=== PATIENT | female | born 1980 | race Caucasian/White ===

== ENCOUNTER 2019-05-19 00:22 | Emergency (ER) | payer OTHER ==
[~2019-05-19] VITALS: Ht 177.8 cm; Wt 95.5 kg
[~2019-05-19 00:22] MED LIST: NAPR-243 PO; PAXIL; PIRO-9 PO; TRM50T PO
[2019-05-19] MEDS ORDERED: KETOROLAC 30 MG/ML VIAL IVP STA (00:30)
[2019-05-19] MEDS ORDERED: PANTOPRAZOLE 40 MG (PROTONIX) VIAL IV ONE (00:30)
[2019-05-19] MEDS ORDERED: HYOSCYAMINE 0.125 MG (LEVSIN) TAB SL ONE (00:30)
[2019-05-19] MEDS ORDERED: ONDANSETRON 4 MG/2 ML (SDV) Z0FRAN IVP ONE (00:30)
[2019-05-19] MEDS ORDERED: ASPIRIN 81 MG CHEW (CHILDREN'S ASA) PO STA (00:30)
[2019-05-19 00:45] LABS: BASOPHILS # (AUTO) 0.1 10^3/uL (0.0-0.1); BASOPHILS % (AUTO) 0 % (0-10); EOSINOPHILS # (AUTO) 0.6 10^3/uL (0.0-0.3); EOSINOPHILS % (AUTO) 4 % (0-10); HEMATOCRIT 32 % (35-52); HEMOGLOBIN 9.6 G/DL (11.5-16.0); LYMPHOCYTES # (AUTO) 5.4 X 10^3 (1.0-4.0); LYMPHOCYTES % (AUTO) 38 % (12-44); MEAN CORPUSCULAR HEMOGLOBIN 22 PG (25-34); MEAN CORPUSCULAR HGB CONC 30 G/DL (32-36); MEAN CORPUSCULAR VOLUME 74 FL (80-99); MEAN PLATELET VOLUME 8.6 FL (7.4-10.4); MONOCYTES # (AUTO) 1.1 X 10^3 (0.0-1.0); MONOCYTES % (AUTO) 8 % (0-12); NEUTROPHILS # (AUTO) 7.2 X 10^3 (1.8-7.8); NEUTROPHILS % (AUTO) 50 % (42-75); PLATELET COUNT 555 10^3/uL (130-400); WHITE BLOOD COUNT 14.3 10^3/uL (4.3-11.0)
[2019-05-19 01:01] LABS: BILIRUBIN,URINE NEGATIVE (NEGATIVE); CLARITY,URINE CLEAR; COLOR,URINE YELLOW; GLUCOSE, URINE (UA) NEGATIVE (NEGATIVE); KETONES,URINE NEGATIVE (NEGATIVE); LEUKOCYTE ESTERASE ,URINE NEGATIVE (NEGATIVE); NITRITE,URINE NEGATIVE (NEGATIVE); PH,URINE 6 (5-9); PROTEIN,URINE NEGATIVE (NEGATIVE); UROBILINOGEN,URINE NORMAL (NORMAL)
[2019-05-19 01:05] LABS: ACETAMINOPHEN < 10 UG/ML (10-30); ALANINE AMINOTRANSFERASE 30 U/L (0-55); ALBUMIN 4.5 GM/DL (3.2-4.5); ALKALINE PHOSPHATASE 44 U/L (40-136); AMYLASE 79 U/L (25-125); BILIRUBIN,TOTAL 0.2 MG/DL (0.1-1.0); BUN/CREATININE RATIO 13; CALCIUM 9.4 MG/DL (8.5-10.1); CARBON DIOXIDE 20 MMOL/L (21-32); CHLORIDE 106 MMOL/L (98-107); CREATINE KINASE 169 U/L (29-168); CREATININE SERUM 0.88 MG/DL (0.60-1.30); GFR ESTIMATED > 60; GLUCOSE 98 MG/DL (70-105); LIPASE 55 U/L (8-78); POTASSIUM 3.2 MMOL/L (3.6-5.0); SODIUM 139 MMOL/L (135-145); TOTAL PROTEIN 7.6 GM/DL (6.4-8.2)
[2019-05-19 01:12] LABS: CREATINE KINASE MB 1.2 NG/ML (<6.6)
[2019-05-19 01:14] LABS: BACTERIA,URINE NEGATIVE /HPF
[2019-05-19 01:16] LABS: AMPHETAMINE SCREEN, URINE NEGATIVE (NEGATIVE); BARBITURATE SCREEN URINE NEGATIVE (NEGATIVE); BENZODIAZEPINES SCREEN URINE NEGATIVE (NEGATIVE); CANNABINOID SCREEN, URINE NEGATIVE (NEGATIVE); COCAINE SCREEN URINE NEGATIVE (NEGATIVE); METHADONE STAT NEGATIVE (NEGATIVE); METHAMPHETAMINE SCREEN URINE S NEGATIVE (NEGATIVE); OPIATE SCREEN URINE NEGATIVE (NEGATIVE); OXYCODONE STAT NEGATIVE (NEGATIVE); PROPOXYPHENE STAT NEGATIVE (NEGATIVE); TRICYCLIC ANTIDEPRESSANTS SCRE NEGATIVE (NEGATIVE)
[2019-05-19 01:23] LABS: INR 0.9 (0.8-1.4); PROTHROMBIN TIME PATIENT 12.2 SEC (12.2-14.7)
[2019-05-19] MEDS ORDERED: NS 100 ML (IVPB) BAG IV ONE (01:30)
[2019-05-19] MEDS ORDERED: IOHEXOL 350 MG/ML 100 ML (OMNIPAQUE 350) VIAL IV ONE (01:30)
--- NOTE | 2019-05-19 01:59 | ED Chest Pain ---
General Chief Complaint: Chest Pain Stated Complaint: CHEST PAIN Nursing Triage Note: Pt amb to room #7 with c/o medial chest discomfort and SOA. Pt reports @ approx 0000 on this day, medial chest discomfort and SOA began. Pt reports throughout evening she drank between 7-12 alcohol drinks (beer & rum). Pt reports increase pain upon movement. Reports chest discomfort to be accompanied by nausea. S/o @ side. Pt restless and tearful. Pt reports throughout evening of 05/18/19 she experienced diarrhea. Nursing Sepsis Screen: No Definite Risk Source: patient, other (MALE S.O.) History of Present Illness Date Seen by Provider: May 19, 2019 Time Seen by Provider: 00:23 Initial Comments PT ARRIVES VIA POV C/O SUDDEN ONSET OF SEVERE PAIN OF ENTIRE CHEST RATES PAIN 10/10 PAIN BEGAN LESS THAN 15 MINUTES AGO, WHILE SITTING IN A CAR. STATES SHE "CAN'T BREATHE" BECAUSE HER PAIN IS SO SEVERE PAIN IS WORSE WITH BREATHING AND MOVING, CAN'T LAY DOWN DUE TO PAIN C/O MILD NAUSEA, NO VOMITING PT HAS BEEN DRINKING ALCOHOL TONIGHT--"7-12 DRINKS" OF BOTH ALCOHOL AND RUM TONIGHT HAS BEEN TO A BIRTHDAY RE[employer] AT "[employer]" AND THEN TO "[employer]" "TO WATCH THE GAME" PT DRINKS ON A REGULAR BASIS NO HISTORY OF SIMILAR PT HAS SELF DX OF GERD, AND TAKES OTC OMEPRAZOLE AND TUMS STATES SHE "EATS THEM LIKE CANDY, ESPECIALLY LATELY" PT HAS HAD PRIOR GASTRIC SLEEVE SURGERY, CHOLECYSTECTOMY AND APPY. PT STATES SHE HAS NEVER HAD AN EGD. SHORTLY AFTER ARRIVAL, PT NOW STATES "I DON'T KNOW IF IT'S MY CHEST OR MY ABDOMEN--NOW I THINK IT'S MY ABDOMEN" DURING ER STAY PAIN MOVES AROUND--AT TIMES IS IN LUQ/LEFT FLANK/LEFT LOWER RIBS AND CHEST, THEN A SHORT TIME LATER IS ALL ACROSS HER ABDOMEN AND CHEST PT IS CONSTANTLY HOLDING AND PUSHING ON HER CHEST AND UPPER ABDOMEN. LNP 1 WEEK AGO. S/P BTL PCP: FT. YANCI SPARKS Allergies and Home Medications Allergies Coded Allergies: sulfamethoxazole (Unverified Allergy, Severe, ANAPHYLAXSIS, 03/05/11) trimethoprim (Unverified Allergy, Severe, ANAPHYLAXSIS, 03/05/11) Uncoded Allergies: SOLU MEDROL (Allergy, Severe, ANAPHYLAXSIS, 03/05/11) Home Medications Hyoscyamine Sulfate 0.125 Mg Tab.subl, 1-2 TAB SL Q4H Prescribed by: LINDSEY CURRIE on 05/19/19258 Naproxen 500 Mg Tablet, 1 EACH PO TID PRN FOR PAIN Prescribed by: LINDSEY CURRIE on 03/05/11 0536 Ondansetron 4 Mg Tab.rapdis, 4 MG PO Q4H Prescribed by: LINDSEY CURRIE on 05/19/19258 Pantoprazole Sodium 40 Mg Tablet.dr, 40 MG PO BID Prescribed by: LINDSEY CURRIE on 05/19/19258 Piroxicam 20 Mg Capsule, 20 MG PO BID, (Reported) Sucralfate 1 Gm/10 Ml Oral.susp, 1 GM PO QID AC AND HS Prescribed by: LINDSEY CURRIE on 05/19/19258 Tramadol Hcl 50 Mg Tab, 50 MG PO Q4-6HOURS PRN FOR PAIN Prescribed by: LINDSEY CURRIE on 03/05/11 05 [Paxil] , DAILY, (Reported) Patient Home Medication List Home Medication List Reviewed: Yes Review of Systems Review of Systems Constitutional: no symptoms reported Respiratory: See HPI, Shortness of Air Cardiovascular: See HPI, Chest Pain Gastrointestinal: See HPI, Abdominal Pain, Nausea; Denies Vomiting; Other (WAS CONSTIPATED, THEN TOOK MEDICATION THAT CAUSED DIARRHEA, THEN TOOK IMMODIUM TO STOP THE DIARRHEA. ) Genitourinary: No Symptoms Reported Musculoskeletal: see HPI Skin: no symptoms reported Psychiatric/Neurological: See HPI, Anxiety Endocrine: No Symptoms Reported Hematologic/Lymphatic: No Symptoms Reported Past Sdxrbkb-Wmxptg-Lawaeq Hx Patient Social History Alcohol Use: Regular Use (HEAVY AT TIMES) Number of Drinks Today: 12 Alcohol Beverage of Choice: Beer, Rum Recreational Drug Use: No Smoking Status: Current Someday Smoker Type Used: Cigarettes 2nd Hand Smoke Exposure: No Recent Foreign Travel: No Contact w/Someone Who Travel: No Recent Infectious Disease Expo: No Recent Hopitalizations: No Seasonal Allergies Seasonal Allergies: No Past Medical History Surgeries: Yes (GASTRIC SLEEVE) Abdominal, Appendectomy, Gallbladder, Tubal Ligation Respiratory: No Cardiac: No Neurological: No : No DEBURRER History: Tubal Ligation Genitourinary: No Gastrointestinal: Yes (GERD--SELF DX; S/P GASTRIC SLEEVE) Gastroesophageal Reflux Musculoskeletal: No Endocrine: No HEENT: No Cancer: No Psychosocial: No Integumentary: No Blood Disorders: No Physical Exam Vital Signs Vital Signs - First Documented Capillary Refill : Less Than 3 Seconds Height, Weight, BMI Height: '" Weight: lbs. oz. kg; 30.00 BMI Method: General Appearance: Other (EXTREMELY ANXIOUS, NEARLY HYSTERICAL. WALKING AND MOVING VERY STIFFLY AND KEEPS ENTIRE BODY VERY RIGID. PT MOANING AND WAILING AND HYPERVENTILATING ON ARRIVAL. VERY DRAMATIC. STRONG ODOR OF ETOH. 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 Norm as Tested Skin: Normal Color, Warm/Dry, Tattoos/Piercings Progress/Results/Core Measures Results/Orders Lab Results Laboratory Tests Test 05/19/19 00:32 05/19/19 00:53 Range/Units White Blood Count 14.3 H 4.3-11.0 10^3/uL Red Blood Count 4.40 4.35-5.85 10^6/uL Hemoglobin 9.6 L 11.5-16.0 G/DL Hematocrit 32 L 35-52 % Mean Corpuscular Volume 74 L 80-99 FL Mean Corpuscular Hemoglobin 22 L 25-34 PG Mean Corpuscular Hemoglobin Concent 30 L 32-36 G/DL Red Cell Distribution Width 17.0 H 10.0-14.5 % Platelet Count 555 H 130-400 10^3/uL Mean Platelet Volume 8.6 7.4-10.4 FL Neutrophils (%) (Auto) 50 42-75 % Lymphocytes (%) (Auto) 38 12-44 % Monocytes (%) (Auto) 8 0-12 % Eosinophils (%) (Auto) 4 0-10 % Basophils (%) (Auto) 0 0-10 % Neutrophils # (Auto) 7.2 1.8-7.8 X 10^3 Lymphocytes # (Auto) 5.4 H 1.0-4.0 X 10^3 Monocytes # (Auto) 1.1 H 0.0-1.0 X 10^3 Eosinophils # (Auto) 0.6 H 0.0-0.3 10^3/uL Basophils # (Auto) 0.1 0.0-0.1 10^3/uL Prothrombin Time 12.2 12.2-14.7 SEC INR Comment 0.9 0.8-1.4 Activated Partial Thromboplast Time 30 24-35 SEC Sodium Level 139 135-145 MMOL/L Potassium Level 3.2 L 3.6-5.0 MMOL/L Chloride Level 106 98-107 MMOL/L Carbon Dioxide Level 20 L 21-32 MMOL/L Anion Gap 13 5-14 MMOL/L Blood Urea Nitrogen 11 7-18 MG/DL Creatinine 0.88 0.60-1.30 MG/DL Estimat Glomerular Filtration Rate > 60 BUN/Creatinine Ratio 13 Glucose Level 98 70-105 MG/DL Calcium Level 9.4 8.5-10.1 MG/DL Corrected Calcium 9.0 8.5-10.1 MG/DL Magnesium Level 2.0 1.6-2.4 MG/DL Total Bilirubin 0.2 0.1-1.0 MG/DL Aspartate Amino Transf (AST/SGOT) 43 H 5-34 U/L Alanine Aminotransferase (ALT/SGPT) 30 0-55 U/L Alkaline Phosphatase 44 40-136 U/L Total Creatine Kinase 169 H 29-168 U/L Creatine Kinase MB 1.2 <6.6 NG/ML Myoglobin 28.7 10.0-92.0 NG/ML Troponin I < 0.028 <0.028 NG/ML B-Type Natriuretic Peptide < 10.0 <100.0 PG/ML Total Protein 7.6 6.4-8.2 GM/DL Albumin 4.5 3.2-4.5 GM/DL Amylase Level 79 25-125 U/L Lipase 55 8-78 U/L Serum Test, Qualitative NEGATIVE NEGATIVE Acetaminophen Level < 10 L 10-30 UG/ML Serum Alcohol 214 H <10 MG/DL Urine Color YELLOW Urine Clarity CLEAR Urine pH 6 5-9 Urine Specific [place] 1.005 L 1.016-1.022 Urine Protein NEGATIVE NEGATIVE Urine Glucose (UA) NEGATIVE NEGATIVE Urine Ketones NEGATIVE NEGATIVE Urine Nitrite NEGATIVE NEGATIVE Urine Bilirubin NEGATIVE NEGATIVE Urine Urobilinogen NORMAL NORMAL MG/DL Urine Leukocyte Esterase NEGATIVE NEGATIVE Urine RBC (Auto) NEGATIVE NEGATIVE Urine RBC NONE /HPF Urine WBC NONE /HPF Urine Squamous Epithelial Cells 2-5 /HPF Urine Crystals NONE /LPF Urine Bacteria NEGATIVE /HPF Urine Casts NONE /LPF Urine Mucus NEGATIVE /LPF Urine Culture Indicated NO Urine Opiates Screen NEGATIVE NEGATIVE Urine Oxycodone Screen NEGATIVE NEGATIVE Urine Methadone Screen NEGATIVE NEGATIVE Urine Propoxyphene Screen NEGATIVE NEGATIVE Urine Barbiturates Screen NEGATIVE NEGATIVE Ur Tricyclic Antidepressants Screen NEGATIVE NEGATIVE Urine Phencyclidine Screen NEGATIVE NEGATIVE Urine Amphetamines Screen NEGATIVE NEGATIVE Urine Methamphetamines Screen NEGATIVE NEGATIVE Urine Benzodiazepines Screen NEGATIVE NEGATIVE Urine Cocaine Screen NEGATIVE NEGATIVE Urine Cannabinoids Screen NEGATIVE NEGATIVE My Orders Orders - KUSHKVNGA Jac DO Cbc With Automated Diff (05/19/19) Magnesium (05/19/19) Chest 1 View, Ap/Pa Only (05/19/19) Ekg Tracing (05/19/19) Cardiac Profile 1 (05/19/19) Comprehensive Metabolic Panel (05/19/19) Myoglobin Serum (05/19/19) Protime With Inr (05/19/19) Partial Thromboplastin Time (05/19/19) O2 (05/19/19) Monitor-Rhythm Ecg Trace Only (05/19/19) Ed Iv/Invasive Line Start (05/19/19) Creatine Kinase (05/19/19) Creatine Kinase Mb (05/19/19) Lipase (05/19/19) Amylase (05/19/19) BNP (05/19/19) Drug Screen Stat (Urine) (05/19/19:30) Hcg,Qualitative Serum (05/19/19:30) Ua Culture If Indicated (05/19/1930) Ondansetron Injection (Zofran Injectio (05/19/19:30) Hyoscyamine Sl Tablet (Levsin Sl Tablet) (05/19/19:30) Aspirin Chewable Tablet (Baby Aspirin Ch (05/19/19:30) Ketorolac Injection (Toradol Injection) (05/19/19:30) Pantoprazole Injection (Protonix Injecti (05/19/19 00:30) Acetaminophen (05/19/19 00:32) Alcohol (05/19/19 00:32) Ct Alanna Chest/Noang Abd-Pelv W (05/19/19 01:17) Ekg Tracing (05/19/19 01:19) Iohexol Injection (Omnipaque 350 Mg/Ml 1 (05/19/19 01:30) Ns (Ivpb) (Sodium Chloride 0.9% Ivpb Bag (05/19/19 01:30) Rx-Hyoscyamine Tab (Rx-Levsin Sl) (05/19/19 02:48) Rx-Ondansetron Po (Rx-Zofran Po) (05/19/19 02:48) Medications Given in ED Current Medications Medications Dose Ordered Sig/Lisbet Route Start Time Stop Time Status Last Admin Dose Admin Hyoscyamine Sulfate 0.25 mg ONCE ONCE SL 05/19/19 00:30 05/19/19 00:33 DC 05/19/19 01:10 0.25 MG Iohexol 79 ml ONCE ONCE IV 05/19/19 01:30 05/19/19 01:36 DC 05/19/19 01:47 79 ML Ondansetron HCl 4 mg ONCE ONCE IVP 05/19/19 00:30 05/19/19 00:33 DC 05/19/19 00:38 4 MG Pantoprazole 40 mg ONCE ONCE IV 05/19/19 00:30 05/19/19 00:33 DC 05/19/19 00:38 40 MG Sodium Chloride 70 ml ONCE ONCE IV 05/19/19 01:30 05/19/19 01:36 DC 05/19/19 01:47 70 ML Vital Signs/I&O 05/19/19 05/19/19 05/19/19 00:23 00:23 03:05 Temp 36.2 36.6 Pulse 134 90 Resp 24 17 B/P (MAP) 127/111 (116) 106/69 (116) Pulse Ox 100 100 O2 Delivery Room Air Room Air Room Air Blood Pressure Mean: 116 Progress Progress Note : Progress Note GIVEN ZOFRAN, LEVSIN, ASPIRIN, PROTONIX, TORADOL ON ARRIVAL WITH COMPLETE RESOLUTION OF SYMPTOMS. PT IS MUCH CALMER. HEART RATE AND BP ARE DOWN IN NORMAL RANGE. Initial ECG Impression Date: May 19, 2019 Initial ECG Impression Time: 00:26 Initial ECG Rate: 142 Initial ECG Rhythm: S.Tach Initial ECG Impression: Nonspecific Changes EKG : EKG Time: 01:20 Rate: 75 Rhythm: Normal Sinus ECG Impression: Nonspecific Changes, 1st Degree AV Block Diagnostic Imaging Comments CXR--NO ACUTE PROCESS, PENDING RADIOLOGIST REVIEW CT CHEST ANGIOGRAM/ ABDOMEN-PELVIS---NO ACUTE PROCESS, PER [facility] VIA FAX AT 0243 Reviewed: Reviewed by Me Departure Impression Primary Impression: Chest pain Additional Impressions: Epigastric abdominal pain POSSIBLE GASTRITIS/GERD/ESOPHAGEAL SPASM Disposition: HOME, SELF-CARE Condition: Improved Departure-Patient Inst. Referrals: [facility] (PCP/Family) Primary Care Physician TIM YEPEZ DO Patient Instructions: Gastritis (DC), Acid Reflux (Gastroesophageal Reflux Disease) in Adults, Chest Pain (DC), Acute Abdomen (Belly Pain), Adult (DC) Add. Discharge Instructions: NO ALCOHOL CLEAR LIQUIDS--WATER, BROTH, JELLO, GATORADE TOMORROW IF YOU ARE BETTER, ADD BRATS DIET TO CLEAR LIQUIDS--BANANAS, RICE, APPLESAUCE, TOAST, SALTINES FOLLOW UP WITH DR. YEPEZ NEXT WEEK FOR FURTHER CARE--CALL ON MONDAY FOR APPOINTMENT RETURN TO ER IF SYMPTOMS RETURN All discharge instructions reviewed with patient and/or family. Voiced understanding. Scripts Ondansetron (Ondansetron Odt) 4 Mg Tab.rapdis 4 MG PO Q4H for Nausea/Vomiting, #10 TAB Prov: LINDSEY CURRIE DO 05/19/19 Hyoscyamine Sulfate (Levsin-Sl) 0.125 Mg Tab.subl 1-2 TAB SL Q4H for Abdominal Pain, #30 TAB Prov: LINDSEY CURRIE DO 05/19/19 Sucralfate (Carafate) 1 Gm/10 Ml Oral.susp 1 GM PO QID AC AND HS, #400 ML Prov: LINDSEY CURRIE K DO 05/19/19 Pantoprazole Sodium (Protonix) 40 Mg Tablet.dr 40 MG PO BID, #60 TAB Prov: KVNG CURRIEA K DO 05/19/19 KVNG CURRIEA K May 19, 2019 01:59
[2019-05-19] MEDS ORDERED: RX-HYOSCYAMINE 0.125 MG SL (LEVSIN) PPK#6 SL STA (02:48)
[2019-05-19] MEDS ORDERED: RX-ONDANSETRON 4 MG ODT (ZOFRAN) PPK #4 PO STA (02:48)
[2019-05-19] MEDS ORDERED: ONDA4TAB11 PO (02:59)
[2019-05-19] MEDS ORDERED: SUCR1ORA5 PO (02:59)
[2019-05-19] MEDS ORDERED: HYOS0.1283 SL (02:59)
[2019-05-19] MEDS ORDERED: PANT40TA2 PO (02:59)
[2019-05-19 03:05] VITALS: BP 106/69
--- NOTE | 2019-05-19 06:01 | Diagnostic Imaging Report ---
EXAMINATION: Portable erect AP chest at 1:11 AM INDICATION: Chest pain There are no prior studies available for comparison. The heart size is within normal limits. The lungs are clear. There is no evidence for failure, pneumonia or for a pleural effusion. The mediastinum is not widened. The osseous structures are intact. IMPRESSION: 1. There is no evidence for an acute cardiopulmonary abnormality. 2. Reportedly, CTA of the chest, abdomen, and pelvis is pending for further study. Dictated by: Dictated on workstation # [id number]
--- NOTE | 2019-05-19 07:38 | Diagnostic Imaging Report ---
CTA of the chest, abdomen, and pelvis. INDICATION: Chest pain Contiguous axial sections were taken through the chest, abdomen, and pelvis following the administration of intravenous contrast. Sagittal and coronal reconstructed images and MIP images of the aorta were also performed. A delayed axial series through the abdomen and pelvis was obtained as well. There are no prior studies available for comparison. The images through the thorax show that the heart size is within normal limits. There are no coronary artery calcifications evident. The aorta is not abnormally dilated and there is no sign of dissection. There is no defect within the pulmonary arteries to indicate a pulmonary embolus. The lungs are generally clear. There is no evidence for failure, pneumonia or pleural effusion. There is no parenchymal lung mass noted. There is no mediastinal or hilar adenopathy. The thyroid gland is generally unremarkable. There is no obvious breast mass. The sections through the abdomen and pelvis showed that the aorta is not abnormally dilated. The abdominal aorta itself was not evaluated during the arterial phase. By history, the patient is status post cholecystectomy, gastric sleeve and appendectomy. Surgical sutures are seen about the stomach and in the region of the appendix and in the gallbladder fossa. The surgical clips in the region of the appendix are more numerous and larger than usually seen. The reason for this is not certain. Correlation with the patient's surgical history would be recommended. The liver, spleen, pancreas, adrenals, kidneys and inferior vena cava are unremarkable. There is no pelvic mass or free fluid collection evident. There does appear to be a 2.0 cm cyst associated with the right ovary. If further evaluation is desired, then ultrasound would be recommended. The urinary bladder is grossly unremarkable. The bone windows show no evidence for a fracture or for a foreign destructive lesion. The sagittal images do show that there is fairly severe degenerative disc and bone disease at L4-L5. These degenerative changes have developed in the interval since the prior CT lumbar spine exam of 10/22/2007. There does appear to be mild spinal stenosis and neural foraminal narrowing on the right at L4-L5. If further study is desired, then MRI would be recommended. IMPRESSION: 1. There is no evidence for an acute abnormality of the chest, abdomen or pelvis. It should be noted that the abdominal aorta was not evaluated in the arterial phase, however. 2. There are postsurgical changes consistent with a prior cholecystectomy, previous gastric sleeve procedure and appendectomy. The surgical clips in the region of the appendix are larger and more numerous than usually seen. Correlation with the patient's surgical history would be recommended. 3. There appears to be a 2 cm cyst associated with the right ovary. If further study is desired, then ultrasound would be recommended. 4. There is degenerative disc and bony disease at L4-L5 and there does appear to be spinal stenosis and neuroforaminal narrowing on the right at this level. If further imaging is desired, then MRI would be recommended. Dictated by: Dictated on workstation # [id number]
== END 2019-05-19 03:05 | disposition home or self-care (01) ==
LOC: EDUNIT# 00:22 → ER 00:24
DX: R07.9 Chest pain, unspecified (principal); R10.13 Epigastric pain; K21.9 Gastro-esophageal reflux disease without esophagitis; F17.210 Nicotine dependence, cigarettes, uncomplicated; Z90.49 Acquired absence of other specified parts of digestive tract; Z98.51 Tubal ligation status; Z88.2 Allergy status to sulfonamides; Z88.1 Allergy status to other antibiotic agents
CPT/HCPCS: 36415; 71045; 71275; 74177; 80053; 80306; 80320; 80329; 81000; 82150; 82550; 82553; 83690; 83735; 83874; 83880; 84484; 84703; 85025; 85610; 85730; 93041

== ENCOUNTER → 2021-05-05 | Outpatient (CLI) | payer OTHER ==
[~2021-05-05] VITALS: Ht 175 cm; Wt 92.0 kg
[~2021-05-05] MED LIST changes: +CATHETER FLUSH 10 ML SYR IV PRN; +FERR325T24 PO; +HYOS0.1283 SL; +METH27TA4 PO; +MV-M1TAB20 PO; +NS IV 500 ML 500 ML IV SCH; +OMEP-401 PO; +ONDA4TAB11 PO; +PANT40TA2 PO; +SERT100T PO; +SUCR1ORA5 PO
[2021-05-05 09:05] VITALS: BP 117/71
[2021-05-05 09:09] LABS: HEMOGLOBIN 6.9 g/dL (11.5-16.0)
[2021-05-05 09:53] VITALS: BP 107/64
[2021-05-05 10:08] VITALS: BP 111/82
[2021-05-05 11:23] LABS: HEMOGLOBIN 7.2 g/dL (11.5-16.0)
[2021-05-05 11:37] VITALS: BP 101/61
[2021-05-05 11:52] VITALS: BP 105/47
== END ==
LOC: SDC 08:30
PROVIDERS: ATTEND Physician Assistant
DX: D50.9 Iron deficiency anemia, unspecified (principal)
CPT/HCPCS: 36430; 85014; 85018; 86850; 86900; 86901; 86920; P9016; 36415

== ENCOUNTER 2022-01-20 01:33 | Emergency (ER) | payer OTHER ==
[~2022-01-20 01:33] MED LIST changes: -CATHETER FLUSH 10 ML SYR IV PRN; -NS IV 500 ML 500 ML IV SCH
--- NOTE | 2022-01-20 01:53 | ED EENT ---
History of Present Illness General Stated Complaint: SORE THROAT Source: patient History of Present Illness Date Seen by Provider: Jan 20, 2022 Time Seen by Provider: 01:50 Initial Comments PT ARRIVES VIA POV FROM HOME WITH SON C/O SORE THROAT x 2-3 DAYS PAIN GOT BETTER, AND THEN CAME BACK HAS HAD SOME NASAL DRAINAGE NO COUGH NO DIFFICULTY BREATHING OR SWALLOWING SALIVA NO NAUSEA/VOMITING NO FEVER/SWEATS/CHILLS HAS NOT TAKEN ANYTHING FOR PAIN PCP; [facility] Allergies and Home Medications Allergies Coded Allergies: sulfamethoxazole (Unverified Allergy, Severe, ANAPHYLAXSIS, 03/05/11) trimethoprim (Unverified Allergy, Severe, ANAPHYLAXSIS, 03/05/11) Uncoded Allergies: SOLU MEDROL (Allergy, Severe, ANAPHYLAXSIS, 03/05/11) Patient Home Medication List Home Medication List Reviewed: Yes Amoxicillin (Amoxicillin) 875 Mg Tablet, 875 MG PO BID Prescribed by: LINDSEY CURRIE on 01/20/22242 Ferrous Sulfate (Ferosul) 325 Mg Tablet, 325 MG PO DAILY, (Reported) Entered as Reported by: ELVIN JACKSON on 05/05/21958 Loratadine/Pseudoephedrine (Claritin-D 12 Hour Tablet) 5 Mg-120 Mg Tab.er.12h, 1 EACH PO BID Prescribed by: LINDSEY CURRIE on 01/20/22 024 Methylphenidate HCl (Concerta) 27 Mg Tab.er.24, 27 MG PO DAILY, (Reported) Entered as Reported by: ELVIN JACKSON on 05/05/21958 Mv-Mn/Iron/FA/Herbal Cmplx#190 (Vitamin D3 Complete Caplet) 1 Each Tablet, 1 EACH PO DAILY, (Reported) Entered as Reported by: ELVIN JACKSON on 05/05/21958 Omeprazole (Omeprazole) 20 Mg Tab.rap.dr, 20 MG PO DAILY, (Reported) Entered as Reported by: ELVIN JACKSON on 05/05/21958 Prednisone (Prednisone) 20 Mg Tab, 40 MG PO DAILY Prescribed by: LINDSEY CURRIE on 01/20/22 024 Sertraline HCl (Zoloft) 100 Mg Tablet, 100 MG PO DAILY, (Reported) Entered as Reported by: ELVIN JACKSON on 05/05/21 0959 Triamcinolone Acetonide (Nasacort) 55 [address] [place], 2 SPRAYS NS BID Prescribed by: LINDSEY CURRIE on 01/20/22 0243 Review of Systems Review of Systems Constitutional: no symptoms reported Eyes: No Symptoms Reported Ears: No Symptoms Reported Nose: see HPI, congestion, clear discharge Mouth: no symptoms reported Throat: see HPI, pain; denies hoarse, denies aphonia, denies muffled; painful swallowing; denies difficulty with fluids Respiratory: no symptoms reported Cardiovascular: no symptoms reported Gastrointestinal: no symptoms reported Musculoskeletal: no symptoms reported Skin: no symptoms reported Neurological: Anxiety Hematologic/Lymphatic: No Symptoms Reported Immunological/Allergic: no symptoms reported Past Oklflox-Vnxdqk-Ddmrvi Hx Patient Social History Tobacco Use?: No Substance use?: No Alcohol Use?: Yes Alcohol type: Beer, Hard Liquor Alcohol Frequency: Daily Seasonal Allergies Seasonal Allergies: No Past Medical History Surgeries: Yes (GASTRIC SLEEVE) Abdominal, Appendectomy, Gallbladder, Tubal Ligation Respiratory: No Cardiac: No Neurological: No 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 oz. kg; 30.00 BMI Method: General Appearance: WD/WN, no apparent distress, other (DOES NOT APPEAR ILL OR TO BE IN ANY DISCOMFORT OR DISTRESS, BUT WALKS IN VERY DRAMATICALLY-THIS STOPS WHEN DISTRACTED. PT HAS PURPOSEFUL RANDOM, JERKING OF BODY WITH SWALLOWING DURING EXAM. THIS DOES NOT OCCUR WHEN STAFF ARE NOT IN ROOM. PT CRYING AND ROCKING BACK AND FORTH, THIS ALSO STOPS WHEN DISTRACTED. TALKS WITHOUT DIFFICU LTY AND NO DIFFICULTY SWALLOWING SALIVA. ) Eyes: bilateral eye normal inspection, bilateral eye PERRL, bilateral eye EOMI, bilateral eye other (CONJUNCTIVA ARE NORMAL PINK, NO SIGNS OF INFECTION) Ears: bilateral ear auricle normal, bilateral ear canal normal, bilateral ear TM normal Nose: other (NASAL CONGESTION AND CLEAR RHINORRHEA AND POST NASAL DRAINAGE. ) Mouth/Throat: normal mouth inspection; No excessive drooling, No mandibular swelling, No maxillary swelling, No pharynx swelling, No tonsillar swelling, No trismus, No uvula swelling, No voice changes; other (POST NASAL DRAINAGE AND MILD POST PHARYNGEAL ERYTHEMA. TONSIL AREA IS NORMAL. NO SWELLING ) Neck: full range of motion, supple, lymphadenopathy (R) (MILD ANTERIOR ADENOPATHY), lymphadenopathy (L) (MILD ANTERIOR ADENOPATHY) Cardiovascular: regular rate, rhythm, no edema, no JVD, no murmur Respiratory: normal breath sounds, no respiratory distress, no accessory muscle use Gastrointestinal: normal bowel sounds, non tender, soft Neurologic/Psychiatric: mica paster II-XII nml as tested, no motor/sensory deficits, alert, oriented x 3 Skin: normal color, warm/dry; No pallor, No rash; other (SKIN IS PINK, WARM, DRY, WITH GOOD CAPILLARY REFILL AND PINK FINGERS AND PALMS. ) Progress/Results/Core Measures Results/Orders Lab Results Laboratory Tests Test 01/20/22 01:55 Range/Units Influenza Type A (RT-PCR) Not Detected Not Detecte Influenza Type B (RT-PCR) Not Detected Not Detecte SARS-CoV-2 RNA (RT-PCR) Not Detected Not Detecte Group A Streptococcus Screen NEGATIVE NEGATIVE My Orders Orders - LINDSEY CURRIE DO Rapid Strep A Screen (01/20/22 01:48) Covid 19 Inhouse Test (01/20/22 01:48) Influenza A And B By Pcr (01/20/22 01:48) Isolation Central Supply Req (01/20/22 01:48) Rx-Amoxicillin Capsule (Rx-Polymox Capsu (01/20/22 02:40) Prednisone Tablet (Deltasone Tablet) (01/20/22 02:45) Vital Signs/I&O 01/20/22 01:48 Temp 37.1 Pulse 104 Resp 16 B/P (MAP) 152/95 (114) Pulse Ox 98 O2 Delivery Room Air Progress Progress Note : Progress Note PLACED IN ISOLATION ROOM PPE WORN COVID, FLU AND STREP TESTING DONE. NO DETERIORATION IN PT'S CONDITION DURING ER STAY Departure Impression Primary Impression: Sore throat Additional Impression: Post-nasal drainage Disposition: 01 HOME, SELF-CARE Condition: Critical Departure-Patient Inst. Decision time for Depature: 02:40 Referrals: [facility] (PCP/Family) Primary Care Physician Patient Instructions: Sore Throat, Adult ED, Cough, Runny Nose, and the Common Cold Add. Discharge Instructions: LOTS OF CLEAR LIQUIDS--WATER, BROTH, JELLO, GATORADE TYLENOL AND MOTRIN NEEDED FOR PAIN FREQUENT SALT WATER GARGLES FOLLOW UP WITH [facility] IN 2-3 DAYS IF NO BETTER Scripts Prednisone (Prednisone) 20 Mg Tab 40 MG PO DAILY, #6 TAB 0 Refills Prov: LINDSEY CURRIE DO 01/20/22 Triamcinolone Acetonide (Nasacort) 55 [address] [place] 2 SPRAYS NS BID, #1 SPRAY Prov: LINDSEY CURRIE DO 01/20/22 Loratadine/Pseudoephedrine (Claritin-D 12 Hour Tablet) 5 Mg-120 Mg Tab.er.12h 1 EACH PO BID, #14 TAB Prov: LINDSEY CURRIE DO 01/20/22 Amoxicillin (Amoxicillin) 875 Mg Tablet 875 MG PO BID, #20 TAB Prov: LINDSEY CURRIE DO 01/20/22 LINDSEY CURRIE DO Jan 20, 2022 01:53
[2022-01-20] MEDS ORDERED: RX-AMOXICILLIN 500 MG CAP #3 PPK PO STA (02:40)
[2022-01-20] MEDS ORDERED: LORA1TAB59 PO (02:43)
[2022-01-20] MEDS ORDERED: TRIA10.8 NS (02:43)
[2022-01-20] MEDS ORDERED: PRD20T PO (02:43)
[2022-01-20] MEDS ORDERED: AMOX875T2 PO (02:43)
[2022-01-20] MEDS ORDERED: predniSONE 20 MG TAB PO ONE (02:45)
[2022-01-20 02:50] VITALS: BP 128/74
== END 2022-01-20 02:50 | disposition home or self-care (01) ==
LOC: EDUNIT# 01:33 → ER 01:36
DX: J02.9 Acute pharyngitis, unspecified (principal); J34.89 Other specified disorders of nose and nasal sinuses; Z20.822 Contact with and (suspected) exposure to COVID-19
CPT/HCPCS: 87430; 87636; 99283